=== PATIENT | male | born 1935 | race Caucasian/White ===

== ENCOUNTER → 2017-04-28 | Outpatient (CLI) | payer MEDICARE ==
--- NOTE | 2017-04-28 15:11 | EKG ---
Date Performed: 04/28/2017 Time Performed: 11:10:40 PTAGE: 81 years EKG: Sinus rhythm MODERATE INTRAVENTRICULAR CONDUCTION DELAY BORDERLINE ECG NO PREVIOUS TRACING DOCTOR: Canelo Garza Interpretating Date/Time 04/28/2017 15:10:29
== END ==
LOC: HCAV 10:55
PROVIDERS: ATTEND Internal Medicine
DX: Z01.810 Encounter for preprocedural cardiovascular examination (principal)
CPT/HCPCS: 93005

== ENCOUNTER 2017-07-22 15:58 | Emergency (ER) | payer MEDICARE ==
[~2017-07-22] VITALS: Ht 182.9 cm; Wt 93.0 kg
[2017-07-22 16:08] VITALS: BP 130/84; PULSE 73; RESP 14; TEMP 98.2; O2SAT 99
[2017-07-22 16:09] VITALS: BP 207/89; PULSE 59; RESP 14; TEMP 98.2; O2SAT 99
[2017-07-22 16:26] VITALS: BP 181/78
[2017-07-22] MEDS ORDERED: SODIUM CHLORIDE 0.9% FLUSH 10 ML FLUSH IVF PRN (17:15)
[2017-07-22] MEDS ORDERED: LISI40TA PO (17:41)
[2017-07-22] MEDS ORDERED: METF1000 PO (17:41)
[2017-07-22] MEDS ORDERED: PRAM0.5T PO (17:41)
[2017-07-22] MEDS ORDERED: CYAN1TAB24 PO (17:41)
[2017-07-22] MEDS ORDERED: GLIM4TAB PO (17:41)
[2017-07-22] MEDS ORDERED: TEMA30CA PO (17:41)
[2017-07-22] MEDS ORDERED: DULO1CAP2 PO (17:41)
[2017-07-22] MEDS ORDERED: ATOR10TA15 PO (17:41)
[2017-07-22] MEDS ORDERED: TAMS0.4C4 PO (17:41)
[2017-07-22] MEDS ORDERED: OMEP40CA2 PO (17:41)
[2017-07-22] MEDS ORDERED: FISH1000 (17:41)
[2017-07-22] MEDS ORDERED: FISH1200 PO (17:41)
[2017-07-22] MEDS ORDERED: TRAM50TA PO (17:42)
[2017-07-22] MEDS ORDERED: LORA0.5T PO (17:42)
[2017-07-22 17:51] LABS: AUTOMATED NEUTROPHIL # 4.7 TH/MM3 (1.8-7.7); BASOPHIL % 0.4 % (0.0-2.0); EOSINOPHIL # 0.1 TH/MM3 (0-0.4); EOSINOPHIL % 1.8 % (0.0-4.0); HEMATOCRIT 35.7 % (39.0-51.0); LYMPH % 17.8 % (9.0-44.0); LYMPHOCYTE # 1.1 TH/MM3 (1.0-4.8); MEAN CELL VOLUME 85.8 FL (80.0-100.0); MEAN CORPUSCULAR HEMOGLOBIN 28.9 PG (27.0-34.0); MEAN CORPUSCULAR HGB CONC 33.6 % (32.0-36.0); MONO % 4.8 % (0.0-8.0); MONOCYTE # 0.3 TH/MM3 (0-0.9); NEUT % 75.2 % (16.0-70.0); PLATELET COUNT 170 TH/MM3 (150-450); RED BLOOD COUNT 4.16 MIL/MM3 (4.50-5.90); RED CELL DISTRIBUTION WIDTH 15.2 % (11.6-17.2); WHITE BLOOD COUNT 6.3 TH/MM3 (4.0-11.0)
[2017-07-22 17:54] LABS: PROTHROMBIN TIME - PATIENT 10.2 SEC (9.8-11.6)
[2017-07-22 18:16] LABS: C-REACTIVE PROTEIN LESS THAN 0.29 MG/DL (0.00-0.30)
[2017-07-22 18:18] LABS: BICARBONATE 27.8 MEQ/L (21.0-32.0); BLOOD UREA NITROGEN 21 MG/DL (7-18); CALCIUM 9.4 MG/DL (8.5-10.1); CHLORIDE 106 MEQ/L (98-107); CREATININE 1.05 MG/DL (0.60-1.30); GLOMERULAR FILTRATION RATE 68 ML/MIN (>89); GLUCOSE,RANDOM 126 MG/DL (74-106); SODIUM (NA) 141 MEQ/L (136-145)
[2017-07-22 18:32] VITALS: BP 176/86; PULSE 64
--- NOTE | 2017-07-22 18:32 | RADRPT ---
EXAM DATE/TIME: 07/22/2017 17:59 [facility] COMPARISON: No previous studies available for comparison. INDICATIONS : Weakness. MEDICAL HISTORY : Hypercholesterolemia. Hypertension. Diabetic retinopathy. Diabetes. SURGICAL HISTORY : Cataract surgery. Orthopedic surgery, wrist and left leg. ENCOUNTER: Initial ACUITY: 1 day PAIN SCORE: 0/10 LOCATION: Bilateral neck PEAK SYSTOLIC VELOCITIES (cm/sec): ICA/CCA RATIO: Right: 1.1 Left: 1.1 ICA: Right: 65 Left: 70 CCA: Right: 57 Left: 66 ECA: Right: 58 Left: 51 VERTEBRAL: Right: 48 antegrade Left: 30 antegrade Elevated flow velocities and ICA/CCA ratios have been found to correlate with increased degrees of vessel stenosis, calculated as percentage of diameter relative to a normal segment of distal ICA/CCA FINDINGS: RIGHT CAROTID: Minimal plaque bulb and proximal ICA. No significant stenosis is visualized. The waveforms are withi n normal limits. LEFT CAROTID: Minimal plaque bulb and proximal ICA. No significant stenosis is visualized. The waveforms are withi n normal limits. VERTEBRAL ARTERIES: Antegrade flow is seen in both vertebral arteries. MISCELLANEOUS: None. CONCLUSION: Very mild atherosclerotic plaque of the bilateral carotid bifurcations. No narrowing. Cesar Bautista MD on July 22, 2017 at 18:29 Board Certified Radiologist. This report was verified electronically.
[2017-07-22 19:31] VITALS: BP 180/81; PULSE 59; RESP 16; O2SAT 100
--- NOTE | 2017-07-22 19:42 | PD ---
HPI Chief Complaint: Eye Problems/Injury Time Seen by Provider: 17:11 Travel History International Travel<30 days: No Contact w/Intl Traveler<30days: No Traveled to known affect area: No History of Present Illness HPI The patient complains of visual loss in the left eye. He is 81 yo and reports just this morning when he opens his eyes and focuses at the vision slowly darkens and tells gone. After blinking his eye vision is restored. 3 weeks prior he underwent cataract surgery. He was seen today by Dr. Servin at the [facility] who reports the patient had assessment for possible amaurosis fugax with concern for carotid artery blockage or giant cell arteritis. The patient is under have a history of central retinal vein occlusion on the right side. The patient was sent here with the order for stat carotid ultrasound stat ESR CRP. PFSH Past Medical History Depression: Yes High Cholesterol: Yes Diabetes: Yes Patient Takes Glucophage: Yes Hypertension: Yes Influenza Vaccination: Yes Past Surgical History Eye Surgery: Yes (cataract) Social History Alcohol Use: No Tobacco Use: No Substance Use: No Allergies-Medications (Allergen,Severity, Reaction): Coded Allergies: penicillin G (Verified Allergy, Unknown, 07/22/17) Reported Meds & Prescriptions Reported Meds & Active Scripts Active Reported Lorazepam 0.5 Mg Tab 0.5 Mg PO DAILY PRN Tramadol (Tramadol HCl) 50 Mg Tab 50 Mg PO DAILY PRN Duloxetine DR (Duloxetine HCl) 30 Mg Capdr 30 Mg PO DAILY Temazepam 30 Mg Cap 30 Mg PO HS PRN Tamsulosin (Tamsulosin HCl) 0.4 Mg Cap 0.4 Mg PO HS Omeprazole 40 Mg Cap 40 Mg PO DAILY Atorvastatin (Atorvastatin Calcium) 10 Mg Tab 10 Mg PO HS Metformin (Metformin HCl) 1,000 Mg Tab 1,000 Mg PO BIDPC Fish Oil 1200 mg (Trevett-3 Fatty Acids) 360 Mg-1,200 Mg Cap 2,400 Mg PO DAILY Fish Oil (Trevett-3 Fatty Acids) 340 Mg-1,000 Mg Cap B12 (Cyanocobalamin) 1,000 Mcg Tab 1 Tab PO DAILY Glimepiride 4 Mg Tab 4 Mg PO BIDAC Lisinopril 40 Mg Tab 40 Mg PO BID Pramipexole (Pramipexole Dihydrochloride) 0.5 Mg Tab 0.5 Mg PO BID Review of Systems Except as stated in HPI: all other systems reviewed are Neg General / Constitutional: No: Fever Physical Exam Narrative GENERAL: 81-year-old male no acute distress SKIN: Warm and dry. HEAD: Atraumatic. Normocephalic. There is no focus tenderness about the middle meningeal artery and left side or right side or temporal artery on either side. EYES: Pupils equal and round. No scleral icterus. No injection or drainage. ENT: No nasal bleeding or discharge. Mucous membranes pink and moist. NECK: Trachea midline. No JVD. CARDIOVASCULAR: Regular rate and rhythm. RESPIRATORY: No accessory muscle use. Clear to auscultation. Breath sounds equal bilaterally. GASTROINTESTINAL: Abdomen soft, non-tender, nondistended. Hepatic and splenic margins not palpable. MUSCULOSKELETAL: Extremities without clubbing, cyanosis, or edema. No obvious deformities. NEUROLOGICAL: Awake and alert. No obvious cranial nerve deficits. Motor grossly within normal limits. Five out of 5 muscle strength in the arms and legs. Normal speech. PSYCHIATRIC: Appropriate mood and affect; insight and judgment normal. Data Data Last Documented VS Vital Signs Date Time Temp Pulse Resp B/P (MAP) Pulse Ox O2 Delivery O2 Flow Rate FiO2 07/22/17 19:56 07/22/17 19:31 59 16 100 Room Air 07/22/17 16:09 98.2 Orders Orders Basic Metabolic Panel (Bmp) (07/22/17 17:11) Complete Blood Count With Diff (07/22/17 17:11) Prothrombin Time / Inr (Pt) (07/22/17 17:11) Act Partial Throm Time (Ptt) (07/22/17 17:11) Ecg Monitoring (07/22/17 17:11) Iv Access Insert/Monitor (07/22/17 17:11) Oximetry (07/22/17 17:11) Oxygen Administration (07/22/17 17:11) Sodium Chloride 0.9% Flush (Ns Flush) (07/22/17 17:15) C-Reactive Protein (Crp) (07/22/17 17:11) Westergren Sedimentation Rate (07/22/17 17:11) Us Carotid Arteries Comp Bilat (07/22/17 ) Ed Discharge Order (07/22/17 19:52) Labs Laboratory Tests Test 07/22/17 17:15 07/22/17 17:17 Blood Urea Nitrogen 21 MG/DL Creatinine 1.05 MG/DL Random Glucose 126 MG/DL Calcium Level 9.4 MG/DL Sodium Level 141 MEQ/L Potassium Level 3.9 MEQ/L Chloride Level 106 MEQ/L Carbon Dioxide Level 27.8 MEQ/L Anion Gap 7 MEQ/L Estimat Glomerular Filtration Rate 68 ML/MIN C-Reactive Protein LESS THAN 0.29 MG/DL White Blood Count 6.3 TH/MM3 Red Blood Count 4.16 MIL/MM3 Hemoglobin 12.0 GM/DL Hematocrit 35.7 % Mean Corpuscular Volume 85.8 FL Mean Corpuscular Hemoglobin 28.9 PG Mean Corpuscular Hemoglobin Concent 33.6 % Red Cell Distribution Width 15.2 % Platelet Count 170 TH/MM3 Mean Platelet Volume 9.0 FL Neutrophils (%) (Auto) 75.2 % Lymphocytes (%) (Auto) 17.8 % Monocytes (%) (Auto) 4.8 % Eosinophils (%) (Auto) 1.8 % Basophils (%) (Auto) 0.4 % Neutrophils # (Auto) 4.7 TH/MM3 Lymphocytes # (Auto) 1.1 TH/MM3 Monocytes # (Auto) 0.3 TH/MM3 Eosinophils # (Auto) 0.1 TH/MM3 Basophils # (Auto) 0.0 TH/MM3 CBC Comment DIFF FINAL Differential Comment Erythrocyte Sedimentation Rate 13 mm/hr Prothrombin Time 10.2 SEC Prothromb Time International Ratio 1.0 RATIO Activated Partial Thromboplast Time 25.5 SEC MDM Medical Decision Making Medical Screen Exam Complete: Yes Emergency Medical Condition: Yes Medical Record Reviewed: Yes Differential Diagnosis Temporal arteritis, central retinal vein occlusion, CRVO Narrative Course CBC & BMP Diagram 07/22/17 17:15 Calcium Level 9.4 07/22/17 17:17 ESR 1 CRP 0.29 Last Impressions Carotid Artery Ultrasound 07/22/17 0000 Signed Impressions: Service Date/Time: June 17:59 - CONCLUSION: Very mild atherosclerotic plaque of the bilateral carotid bifurcations. No narrowing. Cesar Bautista MD The funduscopic exam per optometry report shows normal optic disc and normal retina with scattered DVT heme on the macula and peripheral vascular disease at the vitreous. The case was discussed with Dr. Servin and the patient has follow-up with primary care provider and ophthalmology next week. There is no tonsil arteritis and the patient's ready for discharge. This case was discussed with the patient. He stated he would not drive until seen again by Dr. Servin. Diagnosis Primary Impression: Vision changes Referrals: [facility] Primary Care Physician Med/Other Pt SpecificInfo: No Change to Meds Disposition: 01 DISCHARGE HOME Condition: Stable Bebeto Shelley MD Jul 22, 2017 19:41
== END 2017-07-22 20:16 | disposition home or self-care (01) ==
LOC: NEPD 15:58
DX: H54.62 Unqualified visual loss, left eye, normal vision right eye (principal); F32.9 Major depressive disorder, single episode, unspecified; E78.00 Pure hypercholesterolemia, unspecified; I10 Essential (primary) hypertension
CPT/HCPCS: 80048; 85025; 85610; 85652; 85730; 86140; 93880; 99284